=== PATIENT | male | born 1985 | race Two or more races ===

== ENCOUNTER 2024-07-05 18:01 | Inpatient (IN) | payer OTHER ==
[~2024-07-05] VITALS: Ht 182.9 cm; Wt 183.6 kg
[2024-07-05] MEDS: PIPERACILLIN-TAZOB 3.375GM 100 ML IV ONE (01:30)
[2024-07-05] MEDS: VANCOMYCIN 1GM/250ML KIT 200 ML IV ONE ×2 (02:00→03:30)
[2024-07-05] MEDS ORDERED: VANCOMYCIN PER PHARMACY 0 MG IV SCH (18:30)
--- NOTE | 2024-07-05 18:34 | ED.PDOC ---
History of Present Illness HPI Comments 38-year-old male presents with a chief complaint of wound to right foot x onset Saturday (x 1 day). Patient states that he was camping and wearing sandals when a "rock" cut his medial right foot and created a deep wound and tore his skin off. Patient mentions that there is no pain to the area and only got it wet from taking a shower this morning. Patient reports that he placed Neosporin on the wound. No other symptoms or modifying factors present at this time. Patient is ambulatory. He reports his wounds were only exposed to water today when he took a shower. He denies history of diabetes. He reports history of HTN, Gout, GERD. Chief Complaint: Extremity Swelling Time Seen by MD: 18:23 Primary Care Provider: NONE Reviewed Notes: Medications, Allergies Allergies: Coded Allergies: NO KNOWN ALLERGIES (Unverified , 07/05/24) Information Source: Patient Mode of Arrival: Ambulatory Severity: Moderate Timing: Days Duration: Since onset Prehospital treatment: None Past Medical History PAST MEDICAL HISTORY: HTN Surgical History: Denies all surgeries Family History Family History: Reviewed,noncontributory to illness Social History Smoker: Non-Smoker Alcohol: Denies ETOH Use Drugs: Denies Drug Use Lives In: Home Constitutional: denies: chills, fever Respiratory: denies: shortness of breath Cardiovascular: denies: chest pain Gastrointestinal: denies: abdominal pain, diarrhea, nausea, vomiting Neurological: denies: dizziness, numbness Integumetry: reports: wounds (B/L Feet) All Other Systems: Reviewed and Negative Physical Exam Exam Comments General: Awake, alert and oriented. No acute distress. Skin: Skin in warm, dry and intact without rashes or lesions. HEENT: The head is normocephalic and atraumatic. Conjunctivae are clear without exudates or hemorrhage. Sclera is non-icteric. Neck: Normal range of motion. No JVD. Cardiac: Regular rate Respiratory: No signs of respiratory distress. No Stridor. Extremities: Bilateral lower feet with erythema, swelling. Right foot with partial degloving of great toe, right 2nd toe with fluid-filled blister . Left foot with erythema, swelling of great toe. Neurological: The patient is awake, alert and oriented to person, place, and time with normal speech. Speech is clear. There is no facial asymmetry. Psychiatric: Appropriate mood and affect. Good judgement and insight. No visual or auditory hallucinations. No suicidal or homicidal ideation. General Appearance: Other HEENT: Other Neck: Other Respiratory: Other Cardiovascular: Other Breast Exam: Deferred Gastrointestinal: Other Genitalia: Deferred Pelvic: Deferred Rectal: Deferred Extremities: No calf tenderness, Normal capillary refill, Normal range of motion, No pedal edema, Other (Normal DP pulse bilaterally) Musculoskeletal : Apperance: Normal Neurologic: Alert, Other Cerebellar Function: Other Reflexes: Other Skin: Other Lymphatic: No Adenopathy Was a procedure done? Was a procedure done?: No Differential Dx Considerations may include: See comment X-Ray, Labs, Meds, VS Vital Signs Date Time Temp Pulse Resp B/P (MAP) Pulse Ox O2 Delivery O2 Flow Rate FiO2 07/05/24 18:17 97.6 90 16 147/83 (104) 97 Lab Test 07/05/24 21:00 07/05/24 19:00 Range/Units Lactic Acid Level 1.5 2.0 0.4-2.0 mmol/L Plasma/Serum Blood Alcohol < 3.0 <10 mg/dL White Blood Count 12.8 H 4.4-10.8 10^3/uL Red Blood Count 6.15 H 4.5-5.90 10^6/uL Hemoglobin 18.0 H 13.5-17.5 g/dL Hematocrit 54.7 H 41.0-53.0 % Mean Corpuscular Volume 89.0 80.0-100.0 fL Mean Corpuscular Hemoglobin 29.2 28.0-32.0 pg Mean Corpuscular Hemoglobin Concent 32.9 32.0-36.0 g/dL Red Cell Distribution Width 17.4 H 11.8-14.3 % Platelet Count 139 L 140-450 10^3/uL Mean Platelet Volume 8.0 6.9-10.8 fL Neutrophils (%) (Auto) 78.4 37.0-80.0 % Lymphocytes (%) (Auto) 9.4 L 10.0-50.0 % Monocytes (%) (Auto) 11.0 0.0-12.0 % Eosinophils (%) (Auto) 0.3 0.0-7.0 % Basophils (%) (Auto) 0.9 0.0-2.0 % Neutrophils # (Auto) 10.1 H 1.6-8.6 10 ^3/uL Lymphocytes # (Auto) 1.2 0.4-5.4 10 ^3/uL Monocytes # (Auto) 1.4 H 0-1.3 10 ^3/uL Eosinophils # (Auto) 0 0-0.8 10 ^3/uL Basophils # (Auto) 0.1 0-0.2 10 ^3/uL Nucleated Red Blood Cells 1.2 % Sodium Level 141 136-145 mmol/L Potassium Level 4.2 3.5-5.1 mmol/L Chloride Level 105 98-107 mmol/L Carbon Dioxide Level 29 20-31 mmol/L Anion Gap 7 5-15 Blood Urea Nitrogen 18 9-23 mg/dL Creatinine 1.30 0.700-1.30 mg/dL Glomerular Filtration Rate Calc 71 >90 mL/min BUN/Creatinine Ratio 13.8 10.0-20.0 Serum Glucose 103 74-106 mg/dL Calcium Level 9.6 8.7-10.4 mg/dL Total Bilirubin 1.0 0.2-1.0 mg/dL Aspartate Amino Transferase (AST) 37 13-40 U/L Alanine Aminotransferase (ALT) 41 H 7-40 U/L Alkaline Phosphatase 74 46-116 U/L Total Protein 6.7 5.7-8.2 g/dL Albumin 4.1 3.2-4.8 g/dL Time of 1ST Reevaluation: 18:53 Reevaluation 1ST: Unchanged Patient Education/Counseling: Diagnosis, Treatment, Prognosis, Other (Need for admission) Family Education/Counseling: No Family Present Departure 1 Departure Time of Disposition: 23:26 Impression: Primary Impression: Cellulitis Disposition: 09 ADMITTED INPATIENT Condition: Stable Comments Number & Complexity of Problems Addressed Acute or chronic illness that poses a threat to life or bodily function: Acute cellulitis bilateral lower extremity Extensive evaluation was performed to identify or rule out: Osteomyelitis, cellulitis, ischemic limb, gangrene, Amount and/or Complexity of Data to be Reviewed/Analyzed Tests reviewed: See labs, imaging Independent interpretation of tests: Agree with radiologist's interpretation of CT bilateral lower extremity Risk of Complications and/or Morbidity or Mortality of Patient Management Patient was at high risk of morbidity from additional diagnostic testing or treatment Decision regarding elective major surgery with identified patient or procedure risk factors: Considered possible need for surgical debridement, patient will be admitted for further evaluation, surgical consult Decision regarding hospitalization or escalation of hospital level of care Critical Care Note Critical Care Time?: No Stability Stability form required: No I personally scribed for MARIA D GONGORA MD ([email or web address]) on 07/05/24 at 18:34. Electronically submitted by Patricio Hinkle ([email or web address]). MARIA D GONGORA MD Jul 05, 2024 18:34
[2024-07-05 19:14] LABS: Basophils # (auto) 0.1 10 ^3/uL (0-0.2); Basophils % (auto) 0.9 % (0.0-2.0); Eosinophils # (auto) 0 10 ^3/uL (0-0.8); Eosinophils % (auto) 0.3 % (0.0-7.0); Hematocrit 54.7 % (41.0-53.0); Lymphocytes # (auto) 1.2 10 ^3/uL (0.4-5.4); Lymphocytes % (auto) 9.4 % (10.0-50.0); Mean Corpuscular Hemoglobin 29.2 pg (28.0-32.0); Mean Corpuscular Hgb Conc. 32.9 g/dL (32.0-36.0); Monocytes # (auto) 1.4 10 ^3/uL (0-1.3); Neutrophils # (auto) 10.1 10 ^3/uL (1.6-8.6); Neutrophils % (auto) 78.4 % (37.0-80.0); Nucleated Red Blood Cells % 1.2 %; Platelet Count (auto) 139 10^3/uL (140-450); Red Blood Cells 6.15 10^6/uL (4.5-5.90); Red Cell Distribution Width 17.4 % (11.8-14.3); White Blood Cell 12.8 10^3/uL (4.4-10.8)
[2024-07-05] MEDS ORDERED: VANCOMYCIN 1GM/250ML KIT 200 ML IV ONE (19:15)
[2024-07-05 19:30] LABS: Albumin 4.1 g/dL (3.2-4.8); Alkaline Phosphatase 74 U/L (46-116); Anion Gap 7 (5-15); Aspartate Aminotransferase 37 U/L (13-40); BUN/Creatinine Ratio 13.8 (10.0-20.0); Blood Urea Nitrogen 18 mg/dL (9-23); Calcium 9.6 mg/dL (8.7-10.4); Carbon Dioxide 29 mmol/L (20-31); Chloride 105 mmol/L (98-107); Glucose 103 mg/dL (74-106); Potassium 4.2 mmol/L (3.5-5.1); Sodium 141 mmol/L (136-145); Total Protein 6.7 g/dL (5.7-8.2)
[2024-07-05 19:31] LABS: Alanine Aminotransferase 41 U/L (7-40)
--- NOTE | 2024-07-05 21:04 | DVH ---
INDICATION: r/o osteo/fracture/emphysema COMPARISON: None TECHNIQUE: CT of the right was performed without contrast. Volume transverse images were obtained a nd reconstructed in multiple planes using bone and soft tissue algorithms. CONTRAST: None Radiation Dose Information: CT Dose: CTDI volume is 2.75 mGy. Dose-length product is 356.13 mGy*cm FINDINGS: The alignment is normal. The joint spaces are normal. There is no fracture, dislocation, or focal osseous lesions. Cystic change to the talus Subcutaneous edema throughout the right ankle and foot worse in the plantar surface of the metatarsal s. IMPRESSION: Subcutaneous edema throughout the right ankle and right foot worse along plantar surface of the metat arsals. Can not exclude osteomyelitis recommend MRI for further evaluation.
--- NOTE | 2024-07-05 21:13 | DVH ---
INDICATION: r/o osteomyelitis/fracture/emphysema COMPARISON: None TECHNIQUE: CT of the right was performed without contrast. Volume transverse images were obtained a nd reconstructed in multiple planes using bone and soft tissue algorithms. CONTRAST: None Radiation Dose Information: CT Dose: CTDI volume is 7.75 mGy. Dose-length product is 356.13 mGy*cm FINDINGS: The alignment is normal. No bony erosion The joint spaces are normal. There is no fracture, dislocation, or focal osseous lesions. Subcutaneous edema IMPRESSION: Subcutaneous edema. Can not exclude osteomyelitis recommend MRI.
[2024-07-05] MEDS ORDERED: ACETAMINOPHEN 325 MG TAB PO PRN (22:30)
[2024-07-05] MEDS ORDERED: DOCUSATE SOD 100 MG CAP PO PRN (22:30)
[2024-07-05] MEDS ORDERED: MORPHINE SULFATE INJ 2 MG/ml SYRG IV PRN ×2 (22:30)
[2024-07-05] MEDS ORDERED: NITROGLYCERIN 0.4 MG SL TAB SL PRN (22:30)
[2024-07-05] MEDS ORDERED: ONDANSETRON HCL 4 MG/2 ML VIAL IV PRN (22:30)
--- NOTE | 2024-07-06 01:08 | DVHHPRES ---
History of Present Illness Resident Creating Document: JIMBO RAMIREZ RESIDENT History of Present Illness Patient is 38 years old male with past medical history of hypertension, gout with a complaint of bilateral foot wound. As per patient [place] he noticed some wound on the right foot initially then on the left foot that started early in the Saturday morning. Patient reported he was walking with [place] that he noticed some pain, crampy in nature 5 5/10 and some wound on the toe and foot especially on the right side. On further inquiry patient also reported his legs are always a little bit swollen it has been going on for a while. Patient denied any bug bite or trauma. Patient also denied any sick contact, fever, constipation, diarrhea, chest pain or shortness of breath, dysarthria change in vision or acute new rash except for wound in the. Initial lab workup revealed leukocytosis with WBC 12.4, polycythemia hemoglobin 18. CT scan Scan of the right foot revealed- Subcutaneous edema throughout the right ankle and right foot worse along plantar surface of the metatarsals. Can not exclude osteomyelitis recommend MRI for further evaluation. CT scan of the left foot Subcutaneous edema. Can not exclude osteomyelitis recommend MRI. Past Medical History Hypertension, gout Past Surgical History None Family History Father had COPD Past Social History Denies smoking, occasional alcoholic, history of marijuana use, lives with triston younger at home Review of Systems Review of Systems Allergy- NKDA Patient was seen today at the bedside. Cardiovascular- deny acute chest pain or shortness of breath or cough or palpitation Respiratory- denies cough or short of breath or wheezing Gastrointestinal- denies any rectal bleeding, nausea or vomiting Musculoskeletal-denies acute joint swelling or tenderness or redness Neurological- denies acute dysarthria, dysphagia, change in vision Psychiatry- denies depression or SI or HI Skin- denies acute rash or purpura Allergies: Coded Allergies: NO KNOWN ALLERGIES (Unverified , 07/05/24) Medications Current Medications Medications Dose Ordered Sig/Niranjan Route Start Time Stop Time Status Last Admin Dose Admin Vancomycin HCl 0 ml @ 0 mls/hr UD IV 07/05/24 18:30 UNV Sodium Chloride 10 ml Q8HR IV 07/06/24 06:00 Ondansetron HCl 4 mg Q4HP PRN IV 07/05/24 22:30 Docusate Sodium 100 mg BIDPRN PRN PO 07/05/24 22:30 Acetaminophen 650 mg Q6HP PRN PO 07/05/24 22:30 Morphine Sulfate 2 mg Q4HPRN PRN IV 07/05/24 22:30 Nitroglycerin 0.4 mg Q5MINP PRN SL 07/05/24 22:30 Morphine Sulfate 2 mg Q30M PRN IV 07/05/24 22:30 Exam Vital Signs Vital Signs Date Time Temp Pulse Resp B/P (MAP) Pulse Ox O2 Delivery O2 Flow Rate FiO2 07/05/24 18:17 97.6 90 16 147/83 (104) 97 Exam General examination- , alert, oriented, conversant HEENT- PEERLA, no acute nasal discharge Cardiovascular- S1-S2 audible, rate and rhythm regular, no murmur Respiratory- CTAB, no wheeze or rhonchi Gastrointestinal-nontender, bowel sound+. Nondistended Musculoskeletal-no acute joint swelling or tenderness or redness# Lower extremity- wound in the right and left foot. Right plantar surface has a chunk of skin coming off likely had a blister with some bleeding. Right 2nd toe is having a blister with redness and some swelling. Left great toe is also showing some blister, swollen, with some discharge, 2nd toe is also red and swollen with some blister. Neurological- cranial nerves intact, no acute dysarthria or dysphagia Psychiatry- denies depression or SI or HI Skin- no acute rash or purpura Labs/Xrays Labs Test 07/05/24 21:00 07/05/24 19:00 Range/Units Lactic Acid Level 1.5 0.4-2.0 mmol/L Plasma/Serum Blood Alcohol < 3.0 <10 mg/dL White Blood Count 12.8 H 4.4-10.8 10^3/uL Red Blood Count 6.15 H 4.5-5.90 10^6/uL Hemoglobin 18.0 H 13.5-17.5 g/dL Hematocrit 54.7 H 41.0-53.0 % Mean Corpuscular Volume 89.0 80.0-100.0 fL Mean Corpuscular Hemoglobin 29.2 28.0-32.0 pg Mean Corpuscular Hemoglobin Concent 32.9 32.0-36.0 g/dL Red Cell Distribution Width 17.4 H 11.8-14.3 % Platelet Count 139 L 140-450 10^3/uL Mean Platelet Volume 8.0 6.9-10.8 fL Neutrophils (%) (Auto) 78.4 37.0-80.0 % Lymphocytes (%) (Auto) 9.4 L 10.0-50.0 % Monocytes (%) (Auto) 11.0 0.0-12.0 % Eosinophils (%) (Auto) 0.3 0.0-7.0 % Basophils (%) (Auto) 0.9 0.0-2.0 % Neutrophils # (Auto) 10.1 H 1.6-8.6 10 ^3/uL Lymphocytes # (Auto) 1.2 0.4-5.4 10 ^3/uL Monocytes # (Auto) 1.4 H 0-1.3 10 ^3/uL Eosinophils # (Auto) 0 0-0.8 10 ^3/uL Basophils # (Auto) 0.1 0-0.2 10 ^3/uL Nucleated Red Blood Cells 1.2 % Sodium Level 141 136-145 mmol/L Potassium Level 4.2 3.5-5.1 mmol/L Chloride Level 105 98-107 mmol/L Carbon Dioxide Level 29 20-31 mmol/L Anion Gap 7 5-15 Blood Urea Nitrogen 18 9-23 mg/dL Creatinine 1.30 0.700-1.30 mg/dL Glomerular Filtration Rate Calc 71 >90 mL/min BUN/Creatinine Ratio 13.8 10.0-20.0 Serum Glucose 103 74-106 mg/dL Calcium Level 9.6 8.7-10.4 mg/dL Total Bilirubin 1.0 0.2-1.0 mg/dL Aspartate Amino Transferase (AST) 37 13-40 U/L Alanine Aminotransferase (ALT) 41 H 7-40 U/L Alkaline Phosphatase 74 46-116 U/L Total Protein 6.7 5.7-8.2 g/dL Albumin 4.1 3.2-4.8 g/dL Assessment/Plan Assessment/Plan #Bilateral foot wound likely due to osteomyelitis or cellulitis - CT scan Scan of the right foot revealed- Subcutaneous edema throughout the right ankle and right foot worse along plantar surface of the metatarsals. Can not exclude osteomyelitis recommend MRI for further evaluation. -CT scan of the left foot Subcutaneous edema. Can not exclude osteomyelitis recommend MRI. -continue Zosyn 3.375 g IV q.6h doses -vancomycin as per protocol -wound consult in place -podiatry consult in place -wound culture order in place -ordered bilateral lower extremity arterial Doppler -ordered bilateral lower extremity venous Doppler rule out DVT -pending MRI of the bilateral foot #Suspected osteomyelitis or cellulitis of bilateral foot in the 1st and 2nd toe -continue Zosyn 3.375 g IV q.6h doses -vancomycin as per protocol -wound consult in place -podiatry consult in place -wound culture order in place --pending MRI of the bilateral foot # bilateral leg swelling --ordered bilateral lower extremity arterial Doppler -ordered bilateral lower extremity venous Doppler rule out DVT -pending MRI of the bilateral foot - # polycythemia likely due to Obstetrics sleep apnea -hemoglobin 18 -monitor CBC # hypertension IV hydralazine q.6h p.r.n. as prescribed # gout -treatment bilirubin 300 mg daily # morbid obesity -BMI 55.3 -patient also counseled about weight reduction, healthy diet, low-fat diet, physical activity Goals of care/advance care planning; FULL CODE; discussed with the patient >15 minutes PUD prophylaxis: DVT prophylaxis: Plan discussed with Dr. Victoria, nursing staff, patient Total time spent on patient evaluation, chart review, assessment and plan, discussion discussion >30 minutes Plan discussed with: Patient Plan discussed with: Patient, Other (rn) My Orders Orders - JIMBO RAMIREZ RESIDENT Procedure Category Date Status Time Admit ADMIT 07/05/24 Transmitted 22:26 Code Status CODE 07/05/24 Transmitted 22:26 Sodium Chloride Lock PHA 07/06/24 In Process (Saline Lock Ns) 06:00 Ondansetron Hcl PHA 07/05/24 In Process (Zofran) 22:30 Docusate Sodium PHA 07/05/24 In Process Capsule (Colace 22:30 Complete Blood Count LAB 07/06/24 Logged 04:00 Comprehensive LAB 07/06/24 Logged Metabolic Panel 04:00 Cardiac DIET 07/06/24 Transmitted Diet-2gna,Lofat,Lochol Breakfast Acetaminophen Tablet PHA 07/05/24 In Process (Tylenol Tablet) 22:30 Morphine Sulfate PHA 07/05/24 In Process Injection 22:30 Nitroglycerin PHA 07/05/24 In Process Sublingual (Ntrostat 22:30 Morphine Sulfate PHA 07/05/24 In Process Injection 22:30 Oxygen By Nasal RT 07/05/24 Transmitted Cannula 22:26 Stat Ekg For Chest [facility] 07/05/24 In Process Pain 22:26 Notify Of Changes [facility] 07/05/24 In Process From Base 22:26 Crankshaft Balancer For [facility] 07/05/24 In Process 24 Hours 22:26 Emergency Dysrhythmia [facility] 07/05/24 In Process Protocol 22:26 Rhythm Strips Once [facility] 07/05/24 In Process Every Shift 22:26 Wound Culture W/ Gs [facility] 07/05/24 Logged 22:26 Drug Screen LAB 07/05/24 Logged 22:31 Urinalysis LAB 07/05/24 Logged 22:31 Date of Service: Jul 05, 2024 Billing Provider: DANIELLE VICTORIA MD Common Visit Codes: [id number] INP/OBS CARE (HIGH) JIMBO RAMIREZ RESIDENT Jul 06, 2024 01:08 DANIELLE VICTORIA MD Jul 06, 2024 19:17
[2024-07-06] MEDS ORDERED: VANCOMYCIN PER PHARMACY 0 MG IV SCH (01:45)
[2024-07-06] MEDS: TETANUS-DIPTH-ACEL PERTUSSIS 0.5ML SYR Tdap IM ONE (02:57)
[2024-07-06 05:37] LABS: Basophils # (auto) 0.1 10 ^3/uL (0-0.2); Basophils % (auto) 0.6 % (0.0-2.0); Eosinophils # (auto) 0.1 10 ^3/uL (0-0.8); Eosinophils % (auto) 0.7 % (0.0-7.0); Hematocrit 53.4 % (41.0-53.0); Hemoglobin 17.4 g/dL (13.5-17.5); Lymphocytes # (auto) 1.8 10 ^3/uL (0.4-5.4); Lymphocytes % (auto) 16.7 % (10.0-50.0); Mean Corpuscular Hemoglobin 29.4 pg (28.0-32.0); Mean Corpuscular Hgb Conc. 32.7 g/dL (32.0-36.0); Mean Corpuscular Volume 89.9 fL (80.0-100.0); Monocytes # (auto) 1.2 10 ^3/uL (0-1.3); Neutrophils # (auto) 7.6 10 ^3/uL (1.6-8.6); Nucleated Red Blood Cells % 0.5 %; Platelet Count (auto) 135 10^3/uL (140-450); Red Blood Cells 5.94 10^6/uL (4.5-5.90); Red Cell Distribution Width 17.5 % (11.8-14.3); White Blood Cell 10.7 10^3/uL (4.4-10.8)
[2024-07-06 05:58] LABS: Alanine Aminotransferase 35 U/L (7-40); Alkaline Phosphatase 64 U/L (46-116); Anion Gap 9 (5-15); Aspartate Aminotransferase 31 U/L (13-40); BUN/Creatinine Ratio 11.8 (10.0-20.0); Blood Urea Nitrogen 14 mg/dL (9-23); Calcium 9.4 mg/dL (8.7-10.4); Carbon Dioxide 29 mmol/L (20-31); Chloride 103 mmol/L (98-107); Glucose 96 mg/dL (74-106); Potassium 3.9 mmol/L (3.5-5.1); Sodium 141 mmol/L (136-145); Uric Acid 6.4 mg/dL (3.7-9.2)
[2024-07-06 05:59] LABS: Bilirubin, Total 1.3 mg/dL (0.2-1.0); Total Protein 6.4 g/dL (5.7-8.2)
[2024-07-06] MEDS: SODIUM CHLOR 0.9% PF (SALINE LOCK) 10ML VIAL/SYR IV SCH (06:03)
[2024-07-06] MEDS: PIPERACILLIN-TAZOB 3.375GM 100 ML IV SCH (06:20)
[2024-07-06 08:00] VITALS: PULSE 99; RESP 16; O2SAT 96
[2024-07-06 08:20] LABS: Erythrocyte Sedimentation Rate 2 mm/hr (0-20)
--- NOTE | 2024-07-06 09:04 | DVH ---
EXAM: MRI MRI R FOOT WO CONTRAST HISTORY: WOUND ON THE FOOT, SUSPECTED OSTEOMYELITIS OR CELLULITIS COMPARISON: CT CT R FOOT WO CONTRAST on DOS: 07/05/24 TECHNIQUE: Multiplanar, multisequence MRI of the right foot was performed. FINDINGS: A large blister is seen on the dorsal and lateral aspects of the 2nd toe. Skin ulceration on the dors al aspect of the great toe and blistering of the medial aspect of the great toe noted. There is callu s formation in the plantar soft tissues of the 5th metatarsal head . Moderate dorsal subcutaneous marcela ma. Ulceration and bolstering on the plantar aspect of the foot noted. No cortical erosion, acute fracture or dislocation. A subcentimeter subchondral cyst is seen in the l ateral talar dome. There is mild hallux valgus deformity. The Lisfranc ligament is intact. The visualized portions of tibialis posterior, flexor hallucis longus, and flexor digitorum tendons a re intact. Visualized portions of peroneus longus and brevis tendons are intact. Visualized portion s of the tibialis anterior, extensor digitorum, and extensor hallucis tendons are intact. The partially visualized plantar fascia is intact. There is no evidence of intermetatarsal bursitis or Moore's neuroma. No significant muscle atrophy is noted. IMPRESSION: 1. Multifocal right foot ulceration and blistering with no evidence of underlying osteomyelitis.
--- NOTE | 2024-07-06 11:14 | DVH ---
Bilateral lower extremity venous duplex Clinical History: BILATERAL LEG SWELLING WITH WOUND Comparison: None Technique: Duplex Doppler evaluation of the deep venous systems of both lower extremities from the common femora l veins to the popliteal veins including color Doppler and spectral/pulsed waveform analysis was perf ormed. Findings: RIGHT SIDE: The common femoral vein demonstrates appropriate compressibility and waveform variability. There is compressibility/patency of the great saphenous vein at the proximal thigh. The femoral vein demonstrates appropriate compressibility and waveform variability. The deep femoral vein demonstrates appropriate compressibility and waveform variability. The popliteal vein demonstrates appropriate compressibility and waveform variability. There is normal compressibility at the tibioperoneal trunk. LEFT SIDE: The common femoral vein demonstrates appropriate compressibility and waveform variability. There is compressibility/patency of the great saphenous vein at the proximal thigh. The femoral vein demonstrates appropriate compressibility and waveform variability. The deep femoral vein demonstrates appropriate compressibility and waveform variability. The popliteal vein demonstrates appropriate compressibility and waveform variability. There is normal compressibility at the tibioperoneal trunk. Impression: No right or left femoropopliteal venous thrombosis.
[2024-07-06 11:15] LABS: Urine Bacteria None Seen /hpf (None Seen)
[2024-07-06] MEDS: VANCOMYCIN 1.75GM/350ML 350 ML IV SCH (11:17)
--- NOTE | 2024-07-06 11:38 | DVH ---
BILATERAL Lower Extremity Arterial Duplex Date: 07/06/2024 10:19 AM Clinical History: BILATERAL FOOT WOUND Comparison: None Technique: Duplex Doppler evaluation including color Doppler and spectral/pulsed waveform analysis of the lower extremity arteries was performed. Finding: RIGHT: Peak systolic velocities are as follows: [employer] TRANSPORTATION MANAGER 149 cm/s Deep femoral 50 cm/s SFA proximal 114 cm/s SFA mid-portion 93 cm/s SFA distal 71 cm/s Popliteal 101 cm/s Posterior tibial 101 cm/s Dorsalis pedis 71 cm/s The waveforms are monophasic in the right dorsalis pedis and posterior tibial arteries.. LEFT: Peak systolic velocities are as follows: BUS TRANSPORTATION MANAGER 121 cm/s Deep femoral 55 cm/s SFA proximal 110 cm/s SFA mid-portion 101 cm/s SFA distal 85 cm/s Popliteal 83 cm/s Posterior tibial 110 cm/s Dorsalis pedis 54 cm/s The waveforms are within normal limits. REFERENCE VALUES, [facility]) vascular Imaging Lab Criteria: Peak systolic velocity ranges (in cm/sec) are as follows: <150 cm/s - <20 % stenosis 150-200 cm/s - 20-49% stenosis 200-300 cm/s - 50-75% stenosis >300 cm/s -> 75% stenosis IMPRESSION: Monophasic waveforms in the right dorsalis pedis artery and right posterior tibial artery suggestive of peripheral vascular disease. There is no evidence for peripheral vascular insufficiency in the left lower extremity. No significant focal stenosis is identified.
[2024-07-06 11:40] LABS: Amphetamine Screen, Urine Neg (NEGATIVE)
[2024-07-06 11:41] LABS: Benzodiazephine Screen, Urine Neg (NEGATIVE)
[2024-07-06 11:42] LABS: Barbiturate Scree,Urine Neg (NEGATIVE); Cocaine Screen, Urine Neg (NEGATIVE); Opiate Scree,Urine Neg (NEGATIVE); Phencyclidine Screen, Urine Neg (NEGATIVE)
[2024-07-06 11:43] LABS: Cannabinoid Screen, Urine Pos (NEGATIVE)
[2024-07-06 11:45] LABS: Urine Blood Negative /uL (Negative); Urine Clarity Clear (Clear); Urine Color Yellow (Yellow); Urine Protein, UAD Negative (Negative); Urine Specific Gravity 1.023 (1.001-1.035); Urine Urobilinogen Normal (Negative); Urine WBC <1 /hpf (0 - 3); Urine pH 5.5 (5.0-9.0)
--- NOTE | 2024-07-06 13:39 | DVH ---
EXAM: MRI MRI L FOOT WO CONTRAST HISTORY: BILATERAL FOOT WOUND, SUSPECTED OSTEOMYELITIS/CELLULITIS COMPARISON: CT CT L FOOT WO CONTRAST on DOS: 07/05/24 TECHNIQUE: Multiplanar, multisequence MRI of the left foot was performed. FINDINGS: Moderate blistering and soft tissue ulceration overlying the great toe noted . There is mild dorsal foot subcutaneous edema . No drainable fluid collection noted. The visualized osseous structures demonstrate normal cortical and bone marrow signal intensity withou t evidence of fracture, trabecular bony injury, or dislocation. The Lisfranc ligament is intact. The visualized portions of tibialis posterior, flexor hallucis longus, and flexor digitorum tendons a re intact. Visualized portions of peroneus longus and brevis tendons are intact. Visualized portion s of the tibialis anterior, extensor digitorum, and extensor hallucis tendons are intact. The partially visualized plantar fascia is intact. There is no evidence of intermetatarsal bursitis or Moore's neuroma. No significant muscle atrophy is noted. IMPRESSION: 1. Moderate blistering and soft tissue ulceration of the left great toe and mild dorsal foot subcutan eous edema. No evidence of acute osteomyelitis.
--- NOTE | 2024-07-06 16:04 | DVHPNRES ---
Progress Note Date Seen: Jul 06, 2024 Resident Creating Document: RENE COVARRUBIAS RESIDENT Has the PT tested + for MRSA If YES, has PT been informed?: No Medical Necessity Reason Pt with a Central, PICC or Fol: No Subjective Review of Systems Patient is 38 years old male with past medical history of hypertension, gout with a complaint of bilateral foot wound. As per patient [place] and he noticed some wound on the right foot initially then on the left foot that started early in the Saturday morning. Patient reported he [place] that he noticed some pain, crampy in nature 5 10 and some wound on the toe and foot especially on the right side. On further inquiry patient also reported his legs are always a little bit swollen it has been going on for a while. Patient denied any bug bite or trauma. Patient also denied any sick contact, fever, constipation, diarrhea, chest pain or shortness of breath, dysarthria change in vision or acute new rash except for wound in the. Initial lab workup revealed leukocytosis with WBC 12.4, polycythemia hemoglobin 18. CT scan Scan of the right foot revealed- Subcutaneous edema throughout the right ankle and right foot worse along plantar surface of the metatarsals. Objective vital signs Vital Sign Date Time Temp Pulse Resp B/P (MAP) Pulse Ox O2 Delivery O2 Flow Rate FiO2 07/06/24 14:01 99.0 102 16 140/86 (104) 92 99.0 07/06/24 08:00 Room Air* 0 21 Total Intake and Output 07/05/24 07/05/24 07/06/24 15:00 23:00 07:00 Intake Total 500 ml Balance 500 ml medications Current Medications Medications Dose Ordered Sig/Niranjan Route Start Time Stop Time Status Last Admin Dose Admin Sodium Chloride 10 ml Q8HR IV 07/06/24 06:00 07/06/24 14:06 10 ML Ondansetron HCl 4 mg Q4HP PRN IV 07/05/24 22:30 Docusate Sodium 100 mg BIDPRN PRN PO 07/05/24 22:30 Acetaminophen 650 mg Q6HP PRN PO 07/05/24 22:30 Morphine Sulfate 2 mg Q4HPRN PRN IV 07/05/24 22:30 Nitroglycerin 0.4 mg Q5MINP PRN SL 07/05/24 22:30 Morphine Sulfate 2 mg Q30M PRN IV 07/05/24 22:30 Piperacillin Sod/ Tazobactam Sod 100 ml @ 200 mls/hr Q6HR IV 07/06/24 06:00 07/06/24 11:18 200 MLS/HR Vancomycin HCl 0 ml @ 0 mls/hr UD IV 07/06/24 01:45 Vancomycin HCl 350 ml @ 200 mls/hr Q12H IV 07/06/24 11:00 07/06/24 11:17 200 MLS/HR Examination General examination- , alert, oriented, conversant HEENT- PEERLA, no acute nasal discharge Cardiovascular- S1-S2 audible, rate and rhythm regular, no murmur Respiratory- CTAB, no wheeze or rhonchi Gastrointestinal-nontender, bowel sound+. Nondistended Musculoskeletal-no acute joint swelling or tenderness or redness# Lower extremity- wound in the right and left foot. Right plantar surface has a chunk of skin coming off likely had a blister with some bleeding. Right 2nd toe is having a blister with redness and some swelling. Left great toe is also showing some blister, swollen, with some discharge, 2nd toe is also red and swollen with some blister. Neurological- cranial nerves intact, no acute dysarthria or dysphagia Psychiatry- denies depression or SI or HI Skin- no acute rash or purpura laboratory and microbiology Laboratory Tests 07/06/24 04:53 Test 07/06/24 04:53 Range/Units Serum Glucose 96 74-106 mg/dL Problem List/Assessment/Plan Problem List/Assessment/Plan #Bilateral foot wound with cellulitis #osteomyelitis ruled out #peripheral artery disease #DVT ruled out - CT scan Scan of the right foot revealed- Subcutaneous edema throughout the right ankle and right foot worse along plantar surface of the metatarsals. Can not exclude osteomyelitis recommend MRI for further evaluation. -CT scan of the left foot Subcutaneous edema. Can not exclude osteomyelitis recommend MRI. Bilateral MRI ruled out osteomyelitis -continue Zosyn 3.375 g IV q.6h doses -vancomycin as per protocol -wound consult in place -podiatry consult in place -wound culture order in place -bilateral lower extremity arterial Doppler: Monophasic waveforms in the right dorsalis pedis artery and right posterior tibial artery suggestive of peripheral vascular disease - bilateral lower extremity venous Doppler ruled out DVT -pending MRI of the bilateral foot #polycythemia likely due to Obstetrics sleep apnea -hemoglobin 18 -monitor CBC #Essential hypertension Losartan 100 mg PO # gout f/u outpatient # morbid obesity -BMI 55.3 -patient also counseled about weight reduction, healthy diet, low-fat diet, physical activity Goals of care/advance care planning; FULL CODE; discussed with the patient >15 minutes Plan discussed with Dr. Mcclellan, nursing staff, patient Total time spent on patient evaluation, chart review, assessment and plan, discussion discussion >30 minutes Plan discussed with: Patient Plan discussed with: Patient, Other (rn) Date of Service: Jul 06, 2024 Billing Provider: SHONDA MCCLELLAN MD Common Visit Codes: [id number] INP/OBS CARE(HIGH) RENE COVARRUBIAS RESIDENT Jul 06, 2024 16:04 SHONDA MCCLELLAN MD Jul 11, 2024 19:10
[2024-07-06 19:59] VITALS: PULSE 87; RESP 20; O2SAT 95
[2024-07-06 21:51] VITALS: BP 130/78; PULSE 101; RESP 18; TEMP 98.2; O2SAT 93
[2024-07-06 22:08] VITALS: BP 132/72; PULSE 101; RESP 20; TEMP 98.2; O2SAT 93
[2024-07-06] MEDS ORDERED: OMEP20TA PO (22:27)
[2024-07-06] MEDS ORDERED: ALLO300T2 PO (22:27)
[2024-07-06] MEDS ORDERED: LOSA-533 PO (22:27)
[2024-07-06] MEDS ORDERED: ASPI-543 PO (22:27)
[2024-07-06] MEDS ORDERED: METO25TA5 PO (22:27)
[2024-07-07 01:00] VITALS: BP 126/44; PULSE 95; RESP 19; TEMP 98.5; O2SAT 94
[2024-07-07 05:00] VITALS: BP 148/89; PULSE 107; RESP 17; TEMP 98.2; O2SAT 96
[2024-07-07 07:04] LABS: Basophils # (auto) 0.1 10 ^3/uL (0-0.2); Eosinophils # (auto) 0.1 10 ^3/uL (0-0.8); Eosinophils % (auto) 0.9 % (0.0-7.0); Mean Corpuscular Hemoglobin 30.3 pg (28.0-32.0)
[2024-07-07 07:06] LABS: Basophils % (auto) 0.7 % (0.0-2.0); Hematocrit 54.7 % (41.0-53.0); Hemoglobin 18.2 g/dL (13.5-17.5); Lymphocytes # (auto) 1.9 10 ^3/uL (0.4-5.4); Lymphocytes % (auto) 16.1 % (10.0-50.0); Mean Corpuscular Hgb Conc. 33.3 g/dL (32.0-36.0); Mean Corpuscular Volume 90.9 fL (80.0-100.0); Monocytes # (auto) 1.2 10 ^3/uL (0-1.3); Neutrophils # (auto) 8.6 10 ^3/uL (1.6-8.6); Neutrophils % (auto) 72.3 % (37.0-80.0); Nucleated Red Blood Cells % 0.5 %; Platelet Count (auto) 150 10^3/uL (140-450); Red Blood Cells 6.02 10^6/uL (4.5-5.90); Red Cell Distribution Width 17.7 % (11.8-14.3)
[2024-07-07 08:00] VITALS: PULSE 80; RESP 18; O2SAT 95
[2024-07-07 09:14] VITALS: BP 109/66; PULSE 106; RESP 19; TEMP 97.4; O2SAT 75
[2024-07-07] MEDS: SODIUM CHLORIDE 0.9% 500 ML IV ONE (09:30)
[2024-07-07] MEDS: LOSARTAN POTASSIUM 50 MG TAB PO SCH (10:02)
[2024-07-07] MEDS ORDERED: AUG875T PO (10:25)
[2024-07-07] MEDS ORDERED: ACET-1882 PO (10:25)
[2024-07-07] MEDS ORDERED: SODIUM CHLORIDE 0.9% 1,000 ML IV ONE (10:30)
[2024-07-07 13:12] VITALS: BP 129/88; PULSE 85; RESP 19; TEMP 98.1; O2SAT 87
--- NOTE | 2024-07-07 14:09 | DVHINCON2 ---
Date Seen: Jul 07, 2024 Reason for Consultation Bilateral foot wounds History of Present Illness Patient is 38 years old male with past medical history of hypertension, gout with a complaint of bilateral foot wound. As per patient [place] and he noticed some wound on the right foot initially then on the left foot that started early in the Saturday morning. Patient reported he [place] that he noticed some pain, crampy in nature 5 5/10 and some wound on the toe and foot especially on the right side. On further inquiry patient also reported his legs are always a little bit swollen it has been going on for a while. Patient denied any bug bite or trauma. Patient also denied any sick contact, fever, constipation, diarrhea, chest pain or shortness of breath, dysarthria change in vision or acute new rash except for wound in the. Initial lab workup revealed leukocytosis with WBC 12.4, polycythemia hemoglobin 18. CT scan Scan of the right foot revealed- Subcutaneous edema throughout the right ankle and right foot worse along plantar surface of the metatarsals. Can not exclude osteomyelitis recommend MRI for further evaluation. CT scan of the left foot Subcutaneous edema. Can not exclude osteomyelitis recommend MRI. Past Medical History See H&P Past Surgical History See H&P Family History: Colon cancer G8 FATHER FH: COPD (chronic obstructive pulmonary disease) G8 FATHER FH: bladder cancer G8 FATHER FH: cancer Grandma Grandpa1 Allergies: Coded Allergies: NO KNOWN ALLERGIES (Unverified , 07/05/24) Home Meds Active Scripts Amoxicillin & Pot Clavulanate (AUGMENTIN TABLET) 875 Mg Tb, 875 MG PO BID for 10 Days, #20 TAB Prov:ERIKA SALDAÑA RESIDENT 07/07/24 Acetaminophen (Acetaminophen) 325 Mg Tab, 650 MG PO Q6HP PRN for 10 Days, #80 TAB Prov:ERIKA SALDAÑA RESIDENT 07/07/24 Reported Medications Allopurinol (Allopurinol) 300 Mg Tab, 300 MG PO for 30 Days, MG 07/06/24 Losartan Potassium (Losartan Potassium) 25 Mg Tab, 12.5 MG PO DAILY for 30 Days, MG 07/06/24 Omeprazole (Gnp Omeprazole) 20 Mg Tab, 40 MG PO, TAB 07/06/24 Aspirin (Aspir-Low) 81 Mg Tab, 81 MG PO DAILY for 30 Days, MG 07/06/24 Metoprolol Tartrate (Metoprolol Tartrate) 25 Mg Tab, 25 MG PO DAILY for 30 Days, MG 07/06/24 Current Medications Current Medications Medications (Trade) Dose Ordered Sig/Niranjan Route PRN Reason Start Time Stop Time Status Last Admin Losartan Potassium (Cozaar Tablet) 100 mg DAILY PO 07/07/24 10:00 07/07/24 10:02 Vital Signs Vital Signs Date Time Temp Pulse Resp B/P (MAP) Pulse Ox O2 Delivery O2 Flow Rate FiO2 07/07/24 13:12 98.1 85 19 129/88 (102) 87 98.1 07/07/24 08:00 Room Air* 0 21 Physical Exam DERMATOLOGIC EXAM: - Skin is dry and cool to the touch dry bilaterally. - Nails 1-5 of the bilateral foot are thickened, discolored, dystrophic, and tender to palpate with subungual debris - Hair loss noted to bilateral feet - multiple blisters on bilateral feet with degloving of the hallux VASCULAR EXAM: - DP and PT pulses are palpable bilaterally. - REGISTERED ASSOCIATE is brisk to all digits. - Feet are cool to touch compared to lower legs bilaterally. NEUROLOGIC EXAM: - Normal light touch sensation to the superficial peroneal, deep peroneal, sural, saphenous, and tibial nerve branches. - Protective sensation is diminished as tested with a 5.07 10g [place] bilaterally. MUSCULOSKELETAL EXAM: - No gross deformities - Muscle strength is 5/5 and active motion is pain-free and symmetrical bilaterally - No pain or crepitation with passive range of motion bilaterally to all major pedal joints Labs/Diagnostic Data Labs Test 07/07/24 04:25 07/06/24 11:00 07/06/24 04:53 07/05/24 21:00 Range/Units White Blood Count 12.0 H 4.4-10.8 10^3/uL Red Blood Count 6.02 H 4.5-5.90 10^6/uL Hemoglobin 18.2 H 13.5-17.5 g/dL Hematocrit 54.7 H 41.0-53.0 % Mean Corpuscular Volume 90.9 80.0-100.0 fL Mean Corpuscular Hemoglobin 30.3 28.0-32.0 pg Mean Corpuscular Hemoglobin Concent 33.3 32.0-36.0 g/dL Red Cell Distribution Width 17.7 H 11.8-14.3 % Platelet Count 150 140-450 10^3/uL Mean Platelet Volume 8.7 6.9-10.8 fL Neutrophils (%) (Auto) 72.3 37.0-80.0 % Lymphocytes (%) (Auto) 16.1 10.0-50.0 % Monocytes (%) (Auto) 10.0 0.0-12.0 % Eosinophils (%) (Auto) 0.9 0.0-7.0 % Basophils (%) (Auto) 0.7 0.0-2.0 % Neutrophils # (Auto) 8.6 1.6-8.6 10 ^3/uL Lymphocytes # (Auto) 1.9 0.4-5.4 10 ^3/uL Monocytes # (Auto) 1.2 0-1.3 10 ^3/uL Eosinophils # (Auto) 0.1 0-0.8 10 ^3/uL Basophils # (Auto) 0.1 0-0.2 10 ^3/uL Nucleated Red Blood Cells 0.5 % Creatinine 1.35 H 0.700-1.30 mg/dL Glomerular Filtration Rate Calc 68 >90 mL/min Urine Color Yellow Yellow Urine Clarity Clear Clear Urine pH 5.5 5.0-9.0 Urine Specific [place] 1.023 1.001-1.035 Urine Protein Negative Negative Urine Ketones Negative Negative Urine Blood Negative Negative /uL Urine Nitrite Negative Negative Urine Bilirubin Negative Negative Urine Urobilinogen Normal Negative mg/dL Urine Leukocyte Esterase Negative Negative /uL Urine RBC None seen 0 - 3 /hpf Urine WBC <1 0 - 3 /hpf Urine Squamous Epithelial Cells Few <5 /hpf Urine Bacteria None seen None Seen /hpf Urine Glucose Normal Normal mg/dL Urine Opiates Screen Neg NEGATIVE Urine Fentanyl Screen Neg NEGATIVE Urine Barbiturates Screen Neg NEGATIVE Urine Phencyclidine Screen Neg NEGATIVE Urine Amphetamines Screen Neg NEGATIVE Urine Benzodiazepines Screen Neg NEGATIVE Urine Cocaine Screen Neg NEGATIVE Urine Cannabinoids Screen Pos NEGATIVE Erythrocyte Sedimentation Rate 2 0-20 mm/hr Sodium Level 141 136-145 mmol/L Potassium Level 3.9 3.5-5.1 mmol/L Chloride Level 103 98-107 mmol/L Carbon Dioxide Level 29 20-31 mmol/L Anion Gap 9 5-15 Blood Urea Nitrogen 14 9-23 mg/dL BUN/Creatinine Ratio 11.8 10.0-20.0 Serum Glucose 96 74-106 mg/dL Hemoglobin A1c 5.9 H <5.7 % A1C Uric Acid 6.4 3.7-9.2 mg/dL Calcium Level 9.4 8.7-10.4 mg/dL Total Bilirubin 1.3 H 0.2-1.0 mg/dL Aspartate Amino Transferase (AST) 31 13-40 U/L Alanine Aminotransferase (ALT) 35 7-40 U/L Alkaline Phosphatase 64 46-116 U/L C-Reactive Protein High Sensitivity 4.14 H <1.0 mg/dL Total Protein 6.4 5.7-8.2 g/dL Albumin 4.0 3.2-4.8 g/dL Lactic Acid Level 1.5 0.4-2.0 mmol/L Plasma/Serum Blood Alcohol < 3.0 <10 mg/dL Microbiology Date/Time Source Procedure Growth Status 07/05/24 19:00 Blood Blood Culture - Preliminary NO GROWTH AFTER 24 HOURS OF INCUBATION. Resulted Problems(with codes): (1) Cellulitis Plan/Recommendation ASSESSMENT: Patient is a 38-year-old male seen on the floor for multiple blisters and wounds to bilateral feet PLAN: - The patients chart was reviewed, clinical findings were discussed with the patient, the etiologies of the conditions were discussed in detail, and a treatment plan was agreed to at this time, with both oral and written instructions provided. - discussed with the patient that they appear to be superficial and not recommend popping blisters - discussed that the best thing for these is to pain in the foot with Betadine to prevent any worsening infection as the skin heals - not concerned about any deeper infection - recommend patient is dressed with Betadine-soaked gauze Kerlix and use postoperative shoes - recommend discharge with p.o. antibiotics - no indication for surgery at this point - patient will follow up with me in 1 week - patient will need wound care and dressing supplies All questions were answered and concerns addressed to the patient's satisfaction. The patient was given the phone number to the clinic and was told how to make contact with the clinic should any concerns or questions arise. Patient understands that if any questions or concerns arise prior to the next appointment, we should be contacted immediately. FOLLOW-UP: Patient will follow up with me in 1 week for continued wound care Plan discussed with: Patient Date of Service: Jul 07, 2024 Billing Provider: MYCHAL GONZALES DPM Common Visit Codes: [id number] INP/OBS CARE (MOD) MYCHAL GONZALES DPM Jul 07, 2024 14:09
[2024-07-07 15:30] VITALS: BP 109/66
--- NOTE | 2024-07-07 18:47 | DVHDSRES ---
Discharge Summary Date of Admission Resident Creating Document: RENE COVARRUBIAS RESIDENT Jul 05, 2024 at 22:26 Date of Discharge: Jul 07, 2024 Admitting Diagnosis feet cellulites Wounds: bilateral feet Labs/Diagnostic Data: Laboratory Results Test 07/07/24 04:25 07/06/24 11:00 07/06/24 04:53 07/05/24 21:00 White Blood Count 12.0 10^3/uL (4.4-10.8) Red Blood Count 6.02 10^6/uL (4.5-5.90) Hemoglobin 18.2 g/dL (13.5-17.5) Hematocrit 54.7 % (41.0-53.0) Mean Corpuscular Volume 90.9 fL (80.0-100.0) Mean Corpuscular Hemoglobin 30.3 pg (28.0-32.0) Mean Corpuscular Hemoglobin Concent 33.3 g/dL (32.0-36.0) Red Cell Distribution Width 17.7 % (11.8-14.3) Platelet Count 150 10^3/uL (140-450) Mean Platelet Volume 8.7 fL (6.9-10.8) Neutrophils (%) (Auto) 72.3 % (37.0-80.0) Lymphocytes (%) (Auto) 16.1 % (10.0-50.0) Monocytes (%) (Auto) 10.0 % (0.0-12.0) Eosinophils (%) (Auto) 0.9 % (0.0-7.0) Basophils (%) (Auto) 0.7 % (0.0-2.0) Neutrophils # (Auto) 8.6 10 ^3/uL (1.6-8.6) Lymphocytes # (Auto) 1.9 10 ^3/uL (0.4-5.4) Monocytes # (Auto) 1.2 10 ^3/uL (0-1.3) Eosinophils # (Auto) 0.1 10 ^3/uL (0-0.8) Basophils # (Auto) 0.1 10 ^3/uL (0-0.2) Nucleated Red Blood Cells 0.5 % Creatinine 1.35 mg/dL (0.700-1.30) Glomerular Filtration Rate Calc 68 mL/min (>90) Urine Color Yellow (Yellow) Urine Clarity Clear (Clear) Urine pH 5.5 (5.0-9.0) Urine Specific [place] 1.023 (1.001-1.035) Urine Protein Negative (Negative) Urine Ketones Negative (Negative) Urine Blood Negative /uL (Negative) Urine Nitrite Negative (Negative) Urine Bilirubin Negative (Negative) Urine Urobilinogen Normal mg/dL (Negative) Urine Leukocyte Esterase Negative /uL (Negative) Urine RBC None seen /hpf (0 - 3) Urine WBC <1 /hpf (0 - 3) Urine Squamous Epithelial Cells Few /hpf (<5) Urine Bacteria None seen /hpf (None Seen) Urine Glucose Normal mg/dL (Normal) Urine Opiates Screen Neg (NEGATIVE) Urine Fentanyl Screen Neg (NEGATIVE) Urine Barbiturates Screen Neg (NEGATIVE) Urine Phencyclidine Screen Neg (NEGATIVE) Urine Amphetamines Screen Neg (NEGATIVE) Urine Benzodiazepines Screen Neg (NEGATIVE) Urine Cocaine Screen Neg (NEGATIVE) Urine Cannabinoids Screen Pos (NEGATIVE) Erythrocyte Sedimentation Rate 2 mm/hr (0-20) Sodium Level 141 mmol/L (136-145) Potassium Level 3.9 mmol/L (3.5-5.1) Chloride Level 103 mmol/L (98-107) Carbon Dioxide Level 29 mmol/L (20-31) Anion Gap 9 (5-15) Blood Urea Nitrogen 14 mg/dL (9-23) BUN/Creatinine Ratio 11.8 (10.0-20.0) Serum Glucose 96 mg/dL (74-106) Hemoglobin A1c 5.9 % A1C (<5.7) Uric Acid 6.4 mg/dL (3.7-9.2) Calcium Level 9.4 mg/dL (8.7-10.4) Total Bilirubin 1.3 mg/dL (0.2-1.0) Aspartate Amino Transferase (AST) 31 U/L (13-40) Alanine Aminotransferase (ALT) 35 U/L (7-40) Alkaline Phosphatase 64 U/L (46-116) C-Reactive Protein High Sensitivity 4.14 mg/dL (<1.0) Total Protein 6.4 g/dL (5.7-8.2) Albumin 4.0 g/dL (3.2-4.8) Lactic Acid Level 1.5 mmol/L (0.4-2.0) Plasma/Serum Blood Alcohol < 3.0 mg/dL (<10) Other Laboratory Tests 07/07/24 04:25 07/06/24 04:53 Brief Hx & Hospital Course: A 38-year-old male with a past medical history of hypertension and gout presented with bilateral foot wounds [place] the [place]. Examination revealed subcutaneous edema and possible superficial cellulitis with no signs of systemic infection. Initial treatment included IV Vancomycin and Zosyn, along with wound care and a podiatry consultation. Imaging (CT) did not exclude osteomyelitis, prompting a recommendation for an MRI, whic ruled out osteomyelitis. The patient was managed conservatively, emphasizing wound care with Betadine and dressing changes. On discharge, the patient was instructed on proper wound care and advised to follow up in one week with podiatry. Counseling regarding obesity and weight management was provided. General examination- , alert, oriented, conversant HEENT- [place]ERLA, no acute nasal discharge Cardiovascular- S1-S2 audible, rate and rhythm regular, no murmur Respiratory- CTAB, no wheeze or rhonchi Gastrointestinal-nontender, bowel sound+. Nondistended Musculoskeletal-no acute joint swelling or tenderness or redness# Lower extremity- wound in the right and left foot. Right plantar surface has a chunk of skin coming off likely had a blister with some bleeding. Right 2nd toe is having a blister with redness and some swelling. Left great toe is also showing some blister, swollen, with some discharge, 2nd toe is also red and swollen with some blister. Neurological- cranial nerves intact, no acute dysarthria or dysphagia Psychiatry- denies depression or SI or HI Skin- no acute rash or purpura Case discussed with Dr Mcclellan Time spent on care 23 min Consults/Reason for consult podiatry due to feet cellulites Operations or Procedures EXAM: MRI MRI R FOOT WO CONTRAST HISTORY: WOUND ON THE FOOT, SUSPECTED OSTEOMYELITIS OR CELLULITIS COMPARISON: CT CT R FOOT WO CONTRAST on DOS: 07/05/24 TECHNIQUE: Multiplanar, multisequence MRI of the right foot was performed. FINDINGS: A large blister is seen on the dorsal and lateral aspects of the 2nd toe. Skin ulceration on the dorsal aspect of the great toe and blistering of the medial aspect of the great toe noted. There is callus formation in the plantar soft tissues of the 5th metatarsal head . Moderate dorsal subcutaneous edema. Ulceration and bolstering on the plantar aspect of the foot noted. No cortical erosion, acute fracture or dislocation. A subcentimeter subchondral cyst is seen in the lateral talar dome. There is mild hallux valgus deformity. The Lisfranc ligament is intact. The visualized portions of tibialis posterior, flexor hallucis longus, and flexor digitorum tendons are intact. Visualized portions of peroneus longus and brevis tendons are intact. Visualized portions of the tibialis anterior, extensor digitorum, and extensor hallucis tendons are intact. The partially visualized plantar fascia is intact. There is no evidence of intermetatarsal bursitis or Moore's neuroma. No significant muscle atrophy is noted. IMPRESSION: 1. Multifocal right foot ulceration and blistering with no evidence of underlying osteomyelitis. EXAM: MRI MRI L FOOT WO CONTRAST HISTORY: BILATERAL FOOT WOUND, SUSPECTED OSTEOMYELITIS/CELLULITIS COMPARISON: CT CT L FOOT WO CONTRAST on DOS: 07/05/24 TECHNIQUE: Multiplanar, multisequence MRI of the left foot was performed. FINDINGS: Moderate blistering and soft tissue ulceration overlying the great toe noted . There is mild dorsal foot subcutaneous edema . No drainable fluid collection noted. The visualized osseous structures demonstrate normal cortical and bone marrow signal intensity without evidence of fracture, trabecular bony injury, or dislocation. The Lisfranc ligament is intact. The visualized portions of tibialis posterior, flexor hallucis longus, and flexor digitorum tendons are intact. Visualized portions of peroneus longus and brevis tendons are intact. Visualized portions of the tibialis anterior, extensor digitorum, and extensor hallucis tendons are intact. The partially visualized plantar fascia is intact. There is no evidence of intermetatarsal bursitis or Moore's neuroma. No significant muscle atrophy is noted. IMPRESSION: 1. Moderate blistering and soft tissue ulceration of the left great toe and mild dorsal foot subcutaneous edema. No evidence of acute osteomyelitis. Condition at Discharge: Stable Final Diagnosis/Problems List #Bilateral foot wound with cellulitis #osteomyelitis ruled out #peripheral artery disease #DVT ruled out #polycythemia likely due to Obstetrics sleep apnea # morbid obesity # gout #Essential hypertension Discharge Disposition: Home Discharge Instruct/Medications Diet: Consistent carbohydrate, Cardiac 2g Na,low cholest Activity: No Restrictions, As Tolerated Follow Up/Referral: PCP Podiatry (Dr Joshi) in 1 week Medications: Per EMR Discharge Statement: "Patient was advised to return to the ER or call 911 if any headaches, dizziness, shortness of breath, chest pain, abdominal pain, bleeding, fevers, or worsening of medical condition. Patient was counseled about treatment plan, medications, possible side effects, patientverbalized understanding. All questions were answered to the best of my ability. This discharge took greater then 30 minutes in planning, reviewing documentation, counseling the patient, and discussing with other team members." ASSESSMENT ASSESSMENT Assessment Cellulitis Date of Service: Jul 07, 2024 Billing Provider: SHONDA MCCLELLAN MD Common Visit Codes: [id number] DISCH DAY >30min RENE COVARRUBIAS RESIDENT Jul 07, 2024 18:47 SHONDA MCCLELLAN MD Jul 11, 2024 19:10
[2024-07-09 10:55] LABS: Hepatitis B Surface Antigen Negative (Negative); Hepatitis C Antibody Negative (Negative)
== END 2024-07-07 17:05 | disposition home or self-care (01) | DRG 720 ==
LOC: ER 18:01 → OVERFLOW 22:26 → WEST WING 07-06 21:43
PROVIDERS: ADMIT Internal Medicine Geriatric Medicine; ATTEND Internal Medicine Geriatric Medicine
DX: A41.9 Sepsis, unspecified organism (principal); S91.301A Unspecified open wound, right foot, initial encounter; L03.115 Cellulitis of right lower limb; S91.302A Unspecified open wound, left foot, initial encounter; I10 Essential (primary) hypertension; L03.116 Cellulitis of left lower limb; K21.9 Gastro-esophageal reflux disease without esophagitis; M10.9 Gout, unspecified; D75.1 Secondary polycythemia; E66.01 Morbid (severe) obesity due to excess calories; I73.9 Peripheral vascular disease, unspecified; G47.39 Other sleep apnea; Z82.5 Family history of asthma and other chronic lower respiratory diseases; Z80.52 Family history of malignant neoplasm of bladder; Z80.0 Family history of malignant neoplasm of digestive organs; Z68.43 Body mass index [BMI] 50.0-59.9, adult; X58.XXXA Exposure to other specified factors, initial encounter; Y93.89 Activity, other specified; Y92.89 Other specified places as the place of occurrence of the external cause; Y99.8 Other external cause status
CPT/HCPCS: 36415; 73700; 73718; 80053; 80307; 80320; 81001; 82565; 83036; 83605; 84550; 85025; 85652; 86141; 86803; 87040; 87340; 90715; 93925; 93970; G0378; J2543